=== PATIENT | female | born 1965 ===

== ENCOUNTER 2019-12-27 11:12 | Emergency (ER) | payer OTHER ==
[~2019-12-27] VITALS: Ht 152.4 cm; Wt 55.8 kg
== END 2019-12-27 12:43 | disposition home or self-care (01) ==
LOC: ER 11:12
DX: L03.115 Cellulitis of right lower limb (principal); S80.811S Abrasion, right lower leg, sequela; V00-Y99 External causes of morbidity

== ENCOUNTER 2019-12-29 23:29 | Emergency (ER) | payer OTHER ==
[~2019-12-29] VITALS: Ht 152.4 cm; Wt 55.8 kg
[2019-12-29] MEDS ORDERED: KETO10TA2 (23:55)
[2019-12-29] MEDS ORDERED: CLEOCIN HCL150 MG (23:55)
[2019-12-30] MEDS ORDERED: ZYRTEC10 MG PO (02:21)
[2019-12-30] MEDS ORDERED: MEDROLPACK PO (02:21)
== END 2019-12-30 03:10 | disposition home or self-care (01) ==
LOC: ER 23:29
DX: L27.0 Generalized skin eruption due to drugs and medicaments taken internally (principal); T39.8X5A Adverse effect of other nonopioid analgesics and antipyretics, not elsewhere classified, initial encounter; T36.8X5A Adverse effect of other systemic antibiotics, initial encounter; Y92.89 Other specified places as the place of occurrence of the external cause